=== PATIENT | female | born 1970 | race Caucasian/White ===

== ENCOUNTER → 2023-11-27 16:31 | Outpatient (REF) | payer OTHER, SELFPAY | LOC: WDC 16:31 | PROVIDERS: ATTENDING PHYSICIAN Obstetrics & Gynecology; FAMILY PHYSICIAN Internal Medicine | DX: Z12.31 Encounter for screening mammogram for malignant neoplasm of breast (principal) | CPT/HCPCS: 77063; 77067 ==

== ENCOUNTER → 2024-12-04 09:01 | Outpatient (REF) | payer OTHER, SELFPAY | LOC: WDC 09:01 | PROVIDERS: ATTENDING PHYSICIAN Obstetrics & Gynecology; FAMILY PHYSICIAN Internal Medicine | DX: Z12.31 Encounter for screening mammogram for malignant neoplasm of breast (principal) | CPT/HCPCS: 77063; 77067 ==

== ENCOUNTER 2025-01-06 06:03 | Day surgery (SDC) | payer OTHER, SELFPAY ==
[2024-12-25 12:31] LABS: Hematocrit 35.6 % (37.0-47.0); Hemoglobin 11.8 g/dL (12.0-16.0); Mean Corp Hgb Conc. 33.1 g/dL (33.0-37.0); Mean Corpuscular Hgb 31.2 pg (27.0-31.0); Mean Corpuscular Volume 94.2 fL (81.0-99.0); Mean Platelet Volume 9.4 fL (7.4-10.4); Platelet Count 215 10^3/uL (130-400); Red Blood Cell Count 3.78 10^6/uL (4.20-5.40); Red Cell Dist. Width 13.2 % (11.5-14.5); White Blood Cell Count 5.1 10^3/uL (4.8-10.8)
[2024-12-25 12:56] LABS: Blood Urea Nitrogen 20 mg/dl (7-17); Calcium 9.2 mg/dl (8.4-10.2); Carbon Dioxide 26 mmol/L (22-30); Chloride 105 mmol/L (98-107); Glucose 85 mg/dl (70-99); Potassium 4.9 mmol/L (3.5-5.1); Sodium 140 mmol/L (135-145); eGFR > 60.00
[2024-12-25 14:04] VITALS: BMI 19.7
--- NOTE | 2024-12-26 15:27 | PTCARENOTE ---
Abnormal ECG 12/25/[address] Loera no further intervention requested.
[2025-01-06] VITALS (24 sets, daily range): BP systolic 96–125; BP diastolic 57–85; BMI 19.7
[2025-01-06] MEDS: Pyridium 200 MG PO (07:00)
[2025-01-06] MEDS: HEPARIN 5000 UNITS SC (07:00)
[2025-01-06] MEDS: NORMOSOL-R/PLASMALYTE-A 1000 IV (07:10)
[2025-01-06] MEDS: TYLENOL 1000 MG PO (07:56)
[2025-01-06] MEDS: ZOFRAN 4 MG IV (12:04)
[2025-01-06] MEDS: COMPAZINE 5 MG IV (12:19)
== END 2025-01-06 18:12 | disposition home or self-care (01) ==
LOC: SDS 06:03
PROVIDERS: ATTENDING PHYSICIAN Obstetrics & Gynecology; FAMILY PHYSICIAN Internal Medicine
DX: N81.3 Complete uterovaginal prolapse (principal); N95.8 Other specified menopausal and perimenopausal disorders; N39.3 Stress incontinence (female) (male); N36.41 Hypermobility of urethra; D25.9 Leiomyoma of uterus, unspecified; N80.03 Adenomyosis of the uterus
CPT/HCPCS: 57425; 58571; 57250; 57288; 88305; 36415; 80048; 85027; 86850; 86900; 86901; 93005; C1713; C1763; C1771